=== PATIENT | male | born 1970 | race Two or more races ===

== ENCOUNTER 2024-03-13 08:24 | Outpatient (CLI) | payer BC, SELFPAY | END 2024-03-13 08:25 | disposition home or self-care (01) | LOC: INJ CL 08:26 | PROVIDERS: PCP Surgery; Visit Provider Family Medicine | DX: M54.16 Radiculopathy, lumbar region (principal); M51.36 Other intervertebral disc degeneration, lumbar region | CPT/HCPCS: 62321; 64483; J1100; Q9966 ==